=== PATIENT | male | born 1945 | race Caucasian/White ===

== ENCOUNTER 2016-11-18 09:31 | Emergency (ER) | payer OTHER ==
[2016-11-18 10:00] VITALS: BP 131/83
--- NOTE | 2016-11-18 10:13 | UC ---
Lower Extremity/Ankle HPI - HPI Summary HPI Summary: Accidentally kicked into bookshelf with R foot last night. Due to neuropathy cannot normally feel foot. Now has swelling and bruising. - History of Current Complaint Chief Complaint: UCLowerExtremity Stated Complaint: TOE INJURY Time Seen by Provider: 11/18/16 10:07 Hx Obtained From: Patient Onset/Duration: Sudden Onset Severity Initially: Mild Severity Currently: Moderate - Allergies/Home Medications Allergies/Adverse Reactions: Allergies Allergy/AdvReac Type Severity Reaction Status Date / Time Prochlorperazine Allergy Severe ITCHING, Verified 11/18/16 09:44 [From Compazine] RASH, PHOTOSENSITIVITY Sulfa Drugs Allergy Severe VASCULITIS Verified 11/18/16 09:44 Valdecoxib [From Bextra] Allergy Severe VASCULITIS Verified 11/18/16 09:44 Carbamazepine [From Tegretol] Allergy Intermediate Rash Verified 11/18/16 09:44 Gabapentin [From Neurontin] Allergy Unknown Verified 11/18/16 09:44 Reaction Details Naproxen [From Aleve] Allergy SODIUM Verified 11/18/16 09:44 RETENTION- IRRITABILITY Oxycodone Allergy Itching Verified 11/18/16 09:44 Pregabalin [From Lyrica] Allergy FELT LIKE Verified 11/18/16 09:44 ON ANOTHER PLANET Home Medications: Home Medications Ascorbic Acid TAB* [Vitamin C TAB*] 1 tab PO PRN 11/18/16 [History] Magnesium Oxide (mg Supplement [Magnesium] 1 tab PO DAILY 11/18/16 [History Confirmed 11/18/16] Mult Vitmain 1 tab 11/18/16 [History] PMH/Surg Hx/FS Hx/Imm Hx Endocrine History Of: Reports: Diabetes - PREDIABETIC- DIET CONTROLLED Denies: Thyroid Disease Cardiovascular History Of: Reports: Cardiac Disorders - See Note Denies: Hypertension, Pacemaker/ICD, Myocardial Infarction Respiratory History Of: Reports: Bronchitis, Pulmonary Embolism Denies: COPD, Asthma GI/ History Of: Reports: Ulcer - bx 06/24/14, Gastrointestinal Bleed, Gall Bladder Disease Denies: Renal Disease Neurological History Of: Reports: Seizures - 09/2014-GENERALIZED TONIC CLONIC- NONE SINCE Psychological History Of: Reports: Anxiety, Depression - NO MEDICATION FOR Other History Of: Negative For: Anticoagulant Therapy - Surgical History Surgical History: Yes Surgery Procedure, Year, and Place: TONSILECTOMY, ORIF RIGHT ANKLE. 2 ANKLE SURGERIES POST ORIF 1986. LEFT TESTICILAR CA [id number], HERNIA REPAIR 09/2015 , 1981. RIGHT AXILA EXPLORATORY SURGERY. LIPOMA EXCISED FROM MID BACK, LUMBAR DISCECTOMY L3-2012. Lap GALLBLADDER, 1999, [facility]. WISDOM TEETH EXTRACTED. LEFT TESTICULAR-SILICONE IMPLANT- 1982. L5 Bilateral Forenotomy 02/2016- Strong - Family History Known Family History: Positive: Hypertension - Social History Occupation: Unemployed Alcohol Use: Rare Substance Use Type: None Substance Use Comment - Amount & Last Used: prn muscle relaxer Smoking Status (MU): Former Smoker Type: Cigarettes Amount Used/How Often: SOCIAL SMOKER Length of Time of Smoking/Using Tobacco: college thru 2008 Have You Smoked in the Last Year: No When Did the Patient Quit Smoking/Using Tobacco: 5 YEARS AGO - Immunization History Most Recent Influenza Vaccination: 05/2016 Most Recent Tetanus Shot: 2010 Most Recent Pneumonia Vaccination: unsure Review of Systems Constitutional: Negative Skin: Bruising Eyes: Negative ENT: Negative Respiratory: Negative Cardiovascular: Negative Gastrointestinal: Negative Genitourinary: Negative Motor: Negative Neurovascular: Negative Musculoskeletal: Arthralgia Neurological: Negative Psychological: Negative All Other Systems Reviewed And Are Negative: Yes Physical Exam Triage Information Reviewed: Yes Appearance: Well-Appearing, No Pain Distress, Well-Nourished Vital Signs: Initial Vital Signs Temp 97.2 F 11/18/16 09:48 Pulse 103 11/18/16 09:48 Resp 16 11/18/16 09:48 BP 131/83 11/18/16 09:48 Pulse Ox 99 11/18/16 09:48 Vital Signs Reviewed: Yes Eye Exam: Normal, Other - PERRL Eyes: Positive: Conjunctiva Clear ENT Exam: Normal ENT: Positive: Normal ENT inspection, Hearing grossly normal, Pharynx normal, TMs normal Dental Exam: Normal Neck exam: Normal Neck: Positive: Supple, Nontender, No Lymphadenopathy Respiratory Exam: Normal Respiratory: Positive: Chest non-tender, Lungs clear, Normal breath sounds, No respiratory distress, No accessory muscle use Cardiovascular: Positive: No Murmur, Tachycardia - 100 on exam Musculoskeletal Exam: Other - marked bruising and swelling in R great toe Musculoskeletal: Positive: ROM Limited @ Neurological Exam: Normal Neurological: Positive: Alert Psychological Exam: Normal Skin Exam: Other - bruising R great toe Lower Extremity Course/Dx - Differential Dx/Diagnosis Provider Diagnoses: R great toe fracture of base of the distal phalanx closed, nondisplaced, intraarticular Discharge - Discharge Plan Condition: Stable Disposition: HOME Patient Education Materials: Toe Fracture (ED) Referrals: Rafael Griffin MD [Medical Doctor] - Additional Instructions: Because of the nature of your injury, in addition to your nerve damage, follow- up with an orthopedist is important. I would like you to get an appointment within the next week. You can bear weight on the foot, but if it becomes uncomfortable try to rest and elevate the area. Keep the boot on all the time, including while sleeping. I recommend you not remove it for bathing (but it can't get wet, so you will need to sponge-bathe).
--- NOTE | 2016-11-18 10:45 | RAD ---
INDICATION: Right foot injury. TECHNIQUE: 3 views of the right foot were obtained. FINDINGS: There is soft tissue swelling present in the great toe. There is a comminuted nondisplaced fracture present at the base of the distal phalanx of the great toe extending to the proximal articular margin. Incidental note is made of moderate to severe osteoarthritic change in the first metatarsal-phalangeal joint. IMPRESSION: COMMINUTED, NONDISPLACED INTRA-ARTICULAR FRACTURE BASE OF THE DISTAL PHALANX OF THE GREAT TOE.
== END 2016-11-18 11:21 | disposition home or self-care (01) ==
LOC: UCEAST 09:31
DX: S92.424A Nondisplaced fracture of distal phalanx of right great toe, initial encounter for closed fracture (principal); W22.8XXA Striking against or struck by other objects, initial encounter; Y93.9 Activity, unspecified; Y92.9 Unspecified place or not applicable; Z88.6 Allergy status to analgesic agent; Z88.5 Allergy status to narcotic agent; Z88.2 Allergy status to sulfonamides; Z88.8 Allergy status to other drugs, medicaments and biological substances; R73.03 Prediabetes; Z90.49 Acquired absence of other specified parts of digestive tract; Z87.891 Personal history of nicotine dependence
CPT/HCPCS: 99211; G0463

== ENCOUNTER 2018-04-10 13:30 | Inpatient (IN) | payer MEDICARE, OTHER ==
--- NOTE | 2018-04-10 14:36 | ED ---
Psychiatric Complaint - HPI Summary HPI Summary: This is sugar Lucero documenting for attending Lucian Layne MD. This patient is a 72 year old M BIBA to ED with a chief complaint of an episode of confusion this morning. He remembers his telling him she was going to work and that Krishna, a neighbor, would come by to have coffee with him. That is the extent of his memory. 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 A nurse came by yesterday refusing taking food and water. Last night, he refused to take meds. Krishna is a medical professional who offered assistance last night and the patient was able to talk to him and eventually he took the medicine. Krishna said he would come over in the morning to see how he was doing. This morning, his called EMS when she found the patient wandering in [place] barefoot and because of some alarming comments his friends had told her he said such as, tell my evee because Im never going to see her again. states that she has had moments where she is fearful that he may harm her. These sx have been going on for approximately 2 months but has become increasingly worse over the past week. The patient rates the pain 9/10 in severity. Symptoms aggravated by nothing. Symptoms alleviated by spontaneous resolution. He also has fears, one of which is for the political situation in our country currently. He fears he wont see his grandchildren again as well. His provider also suggests he gets a depicote level. 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 - History Of Current Complaint Chief Complaint: EDMentalHealth Time Seen by Provider: 04/10/18 13:34 Hx Obtained From: Patient, Family/Director Trial Onset/Duration: Sudden Onset, Lasting Weeks, Still Present Timing: Intermittent Episode Lasting Severity Currently: Severe - 9/10 Aggravating Factor(s): Nothing Alleviating Factor(s): Other - episodes with spontaneous resolution Associated Signs And Symptoms: Positive: Confused Related History: Positive For: Prior Psychiatric Issues - Allergies/Home Medications Allergies/Adverse Reactions: Allergies Allergy/AdvReac Type Severity Reaction Status Date / Time carbamazepine [From Tegretol] Allergy Rash Verified 04/10/18 14:33 gabapentin [From Neurontin] Allergy Unknown Verified 04/10/18 14:33 Reaction Details naproxen [From Aleve] Allergy See Comment Verified 04/10/18 14:33 oxycodone Allergy Itching Verified 04/10/18 14:33 pregabalin [From Lyrica] Allergy See Comment Verified 04/10/18 14:33 prochlorperazine Allergy See Comment Verified 04/10/18 14:33 [From Compazine] Sulfa (Sulfonamide Allergy See Comment Verified 04/10/18 14:33 Antibiotics) valdecoxib [From Bextra] Allergy See Comment Verified 04/10/18 14:33 Home Medications: Home Medications Atorvastatin* [Lipitor*] 10 mg PO BEDTIME 04/10/18 [History Confirmed 04/10/18] Cholestyramine Resin* [Questran*] 4 gm PO BID 04/10/18 [History Confirmed ] Divalproex ER TAB(*) [Depakote ER TAB(*)] 1,000 mg PO QPM 04/10/18 [History Confirmed 04/10/18] Divalproex ER TAB(*) [Depakote ER TAB(*)] 500 mg PO QAM 04/10/18 [History Confirmed 04/10/18] LORazepam TAB(*) [Ativan 0.5 MG TAB (*)] 0.5 mg PO QPM PRN 04/10/18 [History Confirmed 04/10/18] risperiDONE TAB* [RisperDAL*] 0.5 mg PO QPM 04/10/18 [History Confirmed 04/10/18 ] PMH/Surg Hx/FS Hx/Imm Hx Endocrine/Hematology History: Reports: Hx Blood Transfusions, Hx Diabetes - PREDIABETIC- DIET CONTROLLED, Hx Anemia Denies: Hx Anticoagulant Therapy, Hx Bone Marrow Disease, Hx Sickle Cell Disease, Hx Thyroid Disease, Hx Unexplained Bleeding Cardiovascular History: Reports: Hx Angina, Hx Hypercholesterolemia, Hx Peripheral Vascular Disease - WHEN ALLERGIC REACTION TO BEXTRA ~2003 OR 2004, Hx Valvular Heart Disease - MVP- WHEN WAS YOUNGER- STATES HAS HAD NEGATIVE ECHO' S-LAST 05/2015, Other Cardiovascular Problems/Disorders - RESTING TACHYCARDIA- STATES (-)STRESS TEST 07/2015- Denies: Hx Aneurysm, Hx Coronary Artery Disease, Hx Hypertension, Hx Myocardial Infarction, Hx Pacemaker/ICD Comment Only: Hx Cardiomegaly - SLIGHT ENLARGEMENT OF THE RIGHT VENTRICLE PER PATIENT Respiratory History: Reports: Hx Pulmonary Embolism, Hx Sleep Apnea, Other Respiratory Problems/Disorders - PRONE TO CROUP A CHILD Denies: Hx Asthma, Hx Chronic Obstructive Pulmonary Disease (COPD), Hx Pleural Effusion, Hx Seasonal Allergies GI History: Reports: Hx Diverticulosis, Hx Gall Bladder Disease, Hx Gastroesophageal Reflux Disease - ENDOSCOPY-06/2014, Hx Gastrointestinal Bleed, Hx Hiatal Hernia, Hx Irritable Bowel - POST GALLBLADDER REMOVAL, Hx Ulcer - bx 06/24/14, Other GI Disorders - TROUBLE HOLDING BOWEL- STATES FROM RADIATION THAT HE HAD IN 1981 History: Reports: Other Problems/Disorders - hx polyuria, nocturia Denies: Hx Acute Renal Failure, Hx Benign Prostatic Hyperplasia, Hx Dialysis , Hx Renal Disease Musculoskeletal History: Reports: Hx Arthritis - OTEOARTHRITIS, Hx Back Problems - spinal stenosis/displacement/degeneration, Hx Bursitis - NECK- SPURS - HAD EPIDURAL INJECTIONS- SUMMER 2013, Hx Gout, Hx Orthopedic Injury, Other Musculoskeletal History - L3 RIGHT- DISCECTOMY RIGHT -2012 Denies: Hx Congenital Bone Abnormalities, Hx Fibromyalgia, Hx Osteoporosis, Hx Scoliosis, Hx Tendonitis Sensory History: Reports: Hx Cataracts, Hx Contacts or Glasses - GLASSES, Hx Glaucoma Denies: Hx Hearing Aid Opthamlomology History: Reports: Hx Cataracts, Hx Contacts or Glasses - GLASSES , Hx Glaucoma Neurological History: Reports: Hx Headaches, Hx Nerve Disease - SPINAL MYELITIS , Hx Seizures - 09/2014-GENERALIZED TONIC CLONIC-NONE SINCE, Other Neuro Impairments/Disorders - CRAMP-FASCICULATION SYNDROME, POST RADIATION MYELITIS, DR. 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 2 ANKLE SURGERIES POST ORIF 1986. LEFT TESTICILAR CA [id number], HERNIA REPAIR 09/2015 , 1981. RIGHT AXILA EXPLORATORY SURGERY. LIPOMA EXCISED FROM MID BACK, LUMBAR DISCECTOMY L3-2012. Lap GALLBLADDER, 1999, [facility]. WISDOM TEETH EXTRACTED. LEFT TESTICULAR-SILICONE IMPLANT- 1982. L5 Bilateral Forenotomy 02/2016- [facility] Hx Anesthesia Reactions: Yes - SLOW RECOVERY WITH HYPOXIA - Immunization History Date of Tetanus Vaccine: up to date per pt Infectious Disease History: No Infectious Disease History: Reports: History Other Infectious Disease - herpatic lesion to rt lower lip Denies: Hx Hepatitis, Hx Human Immunodeficiency Virus (HIV), Traveled Outside the [place] in Last 30 Days - Family History Known Family History: Positive: Hypertension - Social History Alcohol Use: Rare Substance Use Type: Reports: None Substance Use Comment - Amount & Last Used: prn muscle relaxer Smoking Status (MU): Former Smoker Type: Cigarettes Amount Used/How Often: SOCIAL SMOKER Length of Time of Smoking/Using Tobacco: college thru 2008 Have You Smoked in the Last Year: No Review of Systems Positive: Other - refused food and water and refused to take his meds Psychological: Other - confusion, found him in [place] barefoot All Other Systems Reviewed And Are Negative: Yes Physical Exam - Summary Physical Exam Summary: VITAL SIGNS: Reviewed. GENERAL: Patient is a well-developed and nourished MALE who is lying comfortable in the stretcher. Patient is not in any acute respiratory distress. HEAD AND FACE: No signs of trauma. No ecchymosis, hematomas or skull depressions. No sinus tenderness. EYES: PERRLA, EOMI x 2, No injected conjunctiva, no nystagmus. EARS: Hearing grossly intact. Ear canals and tympanic membranes are within normal limits. MOUTH: Oropharynx within normal limits. NECK: Supple, trachea is midline, no adenopathy, no JVD, no carotid bruit, no c- spine tenderness, neck with full ROM. CHEST: Symmetric, no tenderness at palpation LUNGS: Clear to auscultation bilaterally. No wheezing or crackles. CVS: Regular rate and rhythm, S1 and S2 present, no murmurs or gallops appreciated. ABDOMEN: Soft, non-tender. No signs of distention. No rebound no guarding, and no masses palpated. Bowel sounds are normal. EXTREMITIES: FROM in all major joints, no edema, no cyanosis or clubbing. NEURO: Alert and oriented x 3. No acute neurological deficits. Speech is normal and follows commands. SKIN: Dry and warm Triage Information Reviewed: Yes Vital Signs On Initial Exam: Initial Vitals Temp Pulse Resp BP Pulse Ox 97.7 F 96 14 144/80 99 04/10/18 13:45 04/10/18 13:45 04/10/18 13:45 04/10/18 13:45 04/10/18 13:45 Vital Signs Reviewed: Yes Diagnostics - Vital Signs Vital Signs Temp Pulse Resp BP Pulse Ox 04/10/18 13:45 97.7 F 96 14 144/80 99 - Laboratory Result Diagrams: 04/10/18 15:42 04/10/18 15:42 Lab Statement: Any lab studies that have been ordered have been reviewed, and results considered in the medical decision making process. Course/Dx - Course Assessment/Plan: Blood test results without any significant abnormality supportiveness slight normocytic normochromic anemia, platelets 148. Urinalysis is negative for UTI he has 1+ ketones. Urine toxicology is negative. Cassity negative for an acute interconnected pathology. Chest x-ray is negative for acute pathology. Patient is medically clear. Patient is hemodynamically stable alert and oriented 3. Patient is awaiting for a mental health evaluation. Dr. Roberts assessed the patient and he recommends admission to the hospital for bipolar disorder. He is a voluntary admission. - Differential Dx/Clinical Impression Differential Diagnosis/HQI/PQRI: Positive: Other - bipolar disorder Provider Diagnosis: Bipolar disorder - Physician Notifications Discussed Care Of Patient With: Carlos Roberts Time Discussed With Above Provider: 21:36 Instructed by Provider To: Other - Dr. Roberts consulted the patient and [place] [facility] [place] - Sign-Out/Discharge Documenting (check all that apply): Patient Departure - Discharge Plan Condition: Stable Disposition: ADMITTED TO [facility] Referrals: Dave Beaevrs MD [Primary Care Provider] -
--- NOTE | 2018-04-10 14:55 | RAD ---
HISTORY: confusion COMPARISONS: September 28, 2014 TECHNIQUE: Multiple contiguous axial CT scans were obtained of the head without intravenous contrast. FINDINGS: HEMORRHAGE/INFARCT: There is no hemorrhage or acute infarct. MASSES/SHIFT: There is no mass or shift. EXTRA-AXIAL SPACES: There are no extra-axial fluid collections. SULCI AND VENTRICLES: The sulci and ventricles are normal in size and position for the patient's stated age. CEREBRUM: There are no focal parenchymal abnormalities. BRAINSTEM: There are no focal parenchymal abnormalities. CEREBELLUM: There are no focal parenchymal abnormalities. VESSELS: The vessels are grossly normal. PARANASAL SINUSES: The paranasal sinuses are clear. ORBITS: The orbits are unremarkable. BONES AND SOFT TISSUE: No bone or soft tissue abnormalities are noted. OTHER: None IMPRESSION: NO ACUTE INTRACRANIAL PATHOLOGY.
--- NOTE | 2018-04-10 15:10 | RAD ---
INDICATION: Confusion COMPARISON: Chest x-ray June 21, 2006 TECHNIQUE: PA and lateral dual-energy views were obtained. FINDINGS: Bones/Soft Tissues: There are no acute bony findings. Cardiomediastinal: The cardiomediastinal silhouette is normal. Lungs: There are no infiltrates. Pleura: There are no pleural effusions. Other: None IMPRESSION: NO ACTIVE DISEASE.
[2018-04-10 15:50] LABS: ABS Basophils 0 10^3/ul (0-0.2); ABS Eosinophils 0 10^3/ul (0-0.6); ABS Monocytes 0.5 10^3/ul (0-0.8); ABS Neutrophils 3.5 10^3/ul (1.5-7.7); ABS Nucleated RBC 0 10^3/ul; Eosinophil % 0.5 % (0-6); Hematocrit 39 % (42-52); Hemoglobin 13.6 g/dl (14.0-18.0); Lymphocyte % 19.7 % (25-47); Mean Corpuscular HGB Conc 35 g/dl (31-36); Mean Corpuscular Hemoglobin 31 pg (27-31); Mean Corpuscular Volume 90 fL (80-94); Nucleated Red Blood Cells % 0; Platelet Count 148 10^3/ul (150-450); Red Blood Count 4.35 10^6/ul (4.00-5.40); Red Cell Distribution Width 13 % (10.5-15)
[2018-04-10 15:52] LABS: Urine Appearance Clear; Urine Blood 1+ (Negative); Urine Color Yellow; Urine Ketones 1+ (Negative); Urine Protein Negative (Negative); Urine Red Blood Cell Trace(0-2/hpf) (Absent); Urine Specific Gravity 1.023 (1.010-1.030); Urine Urobilinogen Negative (Negative); Urine White Blood Cell 2+(11-20/hpf) (Absent)
[2018-04-10 16:36] LABS: EGFR Non-African American 90.3 (>60)
[2018-04-10] MEDS ORDERED: LORazepam TAB(*) 0.5 MG PO ONE (20:20)
[2018-04-10] MEDS ORDERED: Divalproex ER TAB(*) 500 MG PO ONE (20:20)
[2018-04-10] MEDS ORDERED: Atorvastatin* 10 MG TAB PO ONE (20:20)
[2018-04-10] MEDS ORDERED: risperiDONE TAB* 1 MG PO ONE (20:20)
[2018-04-10] MEDS ORDERED: Cholestyramine Resin* 4 GM POWDER PO ONE (20:23)
[2018-04-10] MEDS ORDERED: ATORVASTATIN 10 MG PO ONE (22:00)
[2018-04-10] MEDS ORDERED: CHOLESTYRAMINE RESIN PO ONE (22:00)
[2018-04-11] MEDS ORDERED: Cholestyramine Resin* 4 GM POWDER PO ONE (08:31)
[2018-04-11] MEDS ORDERED: Divalproex ER TAB(*) 500 MG PO ONE (08:31)
--- NOTE | 2018-04-11 09:27 | PN ---
ED Flex Patient Progress Note Date of Service: 04/10/18 Subjective: This is a 72 year-old M who is pending admission to [facility] / transfer to another psychiatric facility / discharge to home / or being observed secondary to bipolar, confusion. Pt. examined in F2 around 0830. He is sleeping comfortably. Objective: Vitals: Most recent vital signs documented below. Laboratory: Current laboratory results documented below. Assessment: Pending admit. Plan: Pending psychiatric or medical consultation to observe / transfer / admit / discharge will follow up daily . Vital Signs Temp Pulse Resp BP Pulse Ox 97.6 F 96 15 145/70 100 04/11/18 00:30 04/11/18 00:30 04/11/18 00:30 04/11/18 00:30 04/11/18 00:30 Lab Results - Entire Visit 04/10/18 04/10/18 04/10/18 15:42 15:42 15:41 WBC 5.0 RBC 4.35 Hgb 13.6 L Hct 39 L MCV 90 MCH 31 MCHC 35 RDW 13 Plt Count 148 L MPV 7.0 L Neut % (Auto) 69.2 Lymph % (Auto) 19.7 L [place] % (Auto) 10.0 H Eos % (Auto) 0.5 Baso % (Auto) 0.6 Absolute Neuts (auto) 3.5 Absolute Lymphs (auto) 1.0 Absolute Monos (auto) 0.5 Absolute Eos (auto) 0 Absolute Basos (auto) 0 Absolute Nucleated RBC 0 Nucleated RBC % 0 Sodium 141 Potassium 3.7 Chloride 103 Carbon Dioxide 28 Anion Gap 10 BUN 17 Creatinine 0.84 Est GFR ( Amer) 109.3 Est GFR (Non-Af Amer) 90.3 BUN/Creatinine Ratio 20.2 H Glucose 125 H Calcium 8.6 Total Bilirubin 0.90 AST 9 L ALT 8 Alkaline Phosphatase 44 Ammonia 27 Total Creatine Kinase 87 Total Protein 5.3 L Albumin 3.7 Globulin 1.6 L Albumin/Globulin Ratio 2.3 TSH 0.52 Urine Color Urine Appearance Urine pH Ur Specific [place] Urine Protein Urine Ketones Urine Blood Urine Nitrate Urine Bilirubin Urine Urobilinogen Ur Leukocyte Esterase Urine WBC (Auto) Urine RBC (Auto) Urine Bacteria Hyaline Casts Urine Glucose Urine Opiates Screen Acetaminophen < 15 Ur Barbiturates Screen Valproic Acid 95.0 Ur Phencyclidine Scrn Ur Amphetamines Screen U Benzodiazepines Scrn Urine Cocaine Screen U Cannabinoids Screen Serum Alcohol < 10 04/10/18 04/10/18 15:22 15:22 WBC RBC Hgb Hct MCV MCH MCHC RDW Plt Count MPV Neut % (Auto) Lymph % (Auto) [place] % (Auto) Eos % (Auto) Baso % (Auto) Absolute Neuts (auto) Absolute Lymphs (auto) Absolute Monos (auto) Absolute Eos (auto) Absolute Basos (auto) Absolute Nucleated RBC Nucleated RBC % Sodium Potassium Chloride Carbon Dioxide Anion Gap BUN Creatinine Est GFR ( Amer) Est GFR (Non-Af Amer) BUN/Creatinine Ratio Glucose Calcium Total Bilirubin AST ALT Alkaline Phosphatase Ammonia Total Creatine Kinase Total Protein Albumin Globulin Albumin/Globulin Ratio TSH Urine Color Yellow Urine Appearance Clear Urine pH 5.0 Ur Specific [place] 1.023 Urine Protein Negative Urine Ketones 1+ A Urine Blood 1+ A Urine Nitrate Negative Urine Bilirubin Negative Urine Urobilinogen Negative Ur Leukocyte Esterase 1+ A Urine WBC (Auto) 2+(11-20/hpf) A Urine RBC (Auto) Trace(0-2/hpf) Urine Bacteria Absent Hyaline Casts Present A Urine Glucose Negative Urine Opiates Screen None detected Acetaminophen Ur Barbiturates Screen None detected Valproic Acid Ur Phencyclidine Scrn None detected Ur Amphetamines Screen None detected U Benzodiazepines Scrn None detected Urine Cocaine Screen None detected U Cannabinoids Screen None detected Serum Alcohol
[2018-04-11] MEDS ORDERED: LORazepam TAB(*) 0.5 MG PO PRN (15:41)
[2018-04-11] MEDS ORDERED: Al Hydrox/Mg Hydrox/Simet LIQ* 30 ML UDC PO PRN (17:43)
[2018-04-11] MEDS ORDERED: risperiDONE TAB* 1 MG PO SCH (18:00)
[2018-04-11] MEDS ORDERED: ATORVASTATIN 10 MG PO SCH (21:00)
[2018-04-11] MEDS: Divalproex ER TAB(*) 500 MG PO SCH (22:50)
[2018-04-11] MEDS: CHOLESTYRAMINE RESIN PO SCH (22:59)
[2018-04-12] MEDS: Vitamin THERAPEUTIC TAB PO SCH (09:02)
[2018-04-12] MEDS: Divalproex ER TAB(*) 500 MG PO SCH ×2 (09:02→17:17)
--- NOTE | 2018-04-12 11:01 | PN ---
MHU: Group Therapy Note - Service Type Service Type: [id number] Group Psychotherapy - Cognitive Behavioral Group Therapy ( CBT):Patient was attentive and participatory in CBT programming this morning, and remained in good behavioral control. Patient expressed positive insights regarding relevant treatment interventions and goals.
[2018-04-12] MEDS: CHOLESTYRAMINE RESIN PO SCH ×2 (12:46→21:05)
[2018-04-12] MEDS: Lurasidone(*) 20 MG TAB PO SCH (17:15)
[2018-04-13] MEDS: Divalproex ER TAB(*) 500 MG PO SCH ×2 (09:22→17:24)
[2018-04-13] MEDS: Vitamin THERAPEUTIC TAB PO SCH (09:22)
[2018-04-13] MEDS: CHOLESTYRAMINE RESIN PO SCH ×2 (09:23→21:29)
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
--- NOTE | 2018-04-13 16:50 | PN ---
Subjective - Subjective Date of Service: 04/13/18 Service Type: 05582 Hosp care 35 min high complexity Subjective: Much time was spent with Suresh and his Monika discussing treatment and discharge. A MoCA assessment was performed and as expected his short-term memory was most affected. Still, the test was given in a noisy milieu with several interruptions. He was able to remember two words and all of the animals after five minutes. His fluency was affected as well. He chose complicated words, such as frangipane, for his F words. This is indicative of his style of over thinking at this point. He scored a 27/30, with the deficits coming from short-term memory. His test is in the chart. Objective - Appearance Appearance: Healthy Appearing Dysmorphic Features: No Hygiene: Normal Grooming: Well Kept - Behavior Psychomotor Activities: Normal Exhibits Abnormal Movement: No - Attitude and Relatedness Attitude and Relatedness: Superficially Cooperative Eye Contact: Good - Speech Quality: Unpressured Latencies: Short Quantity: Appropriate - Mood Patient's Decription of Mood: "Fine" - Affect Observed Affect: Good Affect Consistent with: Dysphoria - Thought Process Patient's Thought Process: Coherent Thought Content: Yes Passive Wish, No Suicidal Planning, No Homicidal Ideation, No Paranoid Ideation - Sensorium Experiencing Hallucinations: Yes Type of Hallucinations: Visual: No, Auditory: Yes - Olfactory, Command: No - Level of Consciousness Level of Consciousness: Alert Orientation: Yes Intact, Yes Orientated to Place, Yes Orientated to Person, No Orientated to Time - Did not know day of week - Impulse Control Impulse Control: Intact - Insight and Judgement Insight and Judgement: Fair - Medication Management Medication Management Adherence: Yes - Additional Observations Comments: Suresh is doing well. He continues to worry about his short-term memory, which is reasonable as it is not completely reliable. he was told today that he wouldn 't be going home today and he managed that news well. Assessment - Assessment Merits Inpatient Hospitalization: For Immediate Safety, For Stabilization, For Discharge Planning Inpatient DSM-V Dx: F31.64 Clinical Impression: Suresh has bipolar disorder and is currently in the midst of a mixed episode with mild psychotic features such as oversensitivity to worry and olfactory hallucinations. Plan - Plan Treatment Plan: Name: SURESH BEVERLY Birthdate: 1945 [id number] Continued Medication Management: Different Medication Medications: Current Medications Acetaminophen (Tylenol Tab*) 650 mg PO Q4H PRN PRN Reason: PAIN or TEMP > 101 F Al Hydrox/Mg Hydrox/Simethicone (Maalox Plus*) 30 ml PO Q4H PRN PRN Reason: INDIGESTION Cholestyramine Resin (Questran*) 4 gm PO BID@0800,2000 [facility] Last Admin: 04/13/18 09:23 Dose: 4 gm Divalproex Sodium (Depakote Er Tab(*)) 500 mg PO QAM [facility] Last Admin: 04/13/18 09:22 Dose: 500 mg Divalproex Sodium (Depakote Er Tab(*)) 1,000 mg PO QPM [facility] Last Admin: 04/12/18 17:17 Dose: 1,000 mg Lorazepam (Ativan Tab(*)) 0.5 mg PO QPM PRN PRN Reason: ANXIETY Lurasidone HCl (Latuda) 20 mg PO 1700 [facility] Last Admin: 04/12/18 17:15 Dose: 20 mg Multivitamins (Theragran Tab*) 1 tab PO DAILY [facility] Last Admin: 04/13/18 09:22 Dose: 1 tab - Discharge Plan Discharge Plan: Outpatient Follow Up Outpatient Program: Private Clinician(s) Additional Comments: With the addition of Latuda and the deletion of Risperdal, which may not have been a large enough dose to manage the psychosis that is going on. Depakote levels will be monitored, as they are close to the top of the therapeutic range. Discharge is projected to be early next week.
[2018-04-13] MEDS: Lurasidone(*) 20 MG TAB PO SCH (17:24)
[2018-04-14] MEDS: Divalproex ER TAB(*) 500 MG PO SCH ×2 (09:04→17:17)
[2018-04-14] MEDS: Vitamin THERAPEUTIC TAB PO SCH (09:05)
[2018-04-14] MEDS: CHOLESTYRAMINE RESIN PO SCH ×2 (09:07→20:05)
--- NOTE | 2018-04-14 12:35 | PN ---
Subjective - Subjective Date of Service: 04/14/18 Service Type: 66700 Hosp care 35 min high complexity Subjective: Suresh put in his 72-hour notice today. Clearly, he would like to be discharged. He stated in the notice that he wants to see his and that he wants to travel. Following a family meeting with his , Claritza Frank, and myself, he did rescind that notice with the agreement that he would be discharged later on Tuesday. In the meeting, he was easily derailed to talk about his concerns about erratic patients having sharpened pencils and feeling stressed by the presence of those who are or were using substances. Objective - Appearance Appearance: Healthy Appearing Dysmorphic Features: No Hygiene: Normal Grooming: Well Kept - Behavior Psychomotor Activities: Normal Exhibits Abnormal Movement: No - Attitude and Relatedness Attitude and Relatedness: Guarded Eye Contact: Good - Speech Quality: Unpressured Latencies: Short Quantity: Copious - Mood Patient's Decription of Mood: "Okay" - Affect Observed Affect: Fair Affect Consistent with: Dysphoria - Thought Process Patient's Thought Process: Coherent Thought Content: No Passive Wish, No Suicidal Planning, No Homicidal Ideation, No Paranoid Ideation - Sensorium Experiencing Hallucinations: No, Sensorium is Clear Type of Hallucinations: Visual: No, Auditory: Yes - olfactory, Command: No - Level of Consciousness Level of Consciousness: Alert Orientation: Yes Intact, Yes Orientated to Time, Yes Orientated to Place, Yes Orientated to Person - Impulse Control Impulse Control: Intact - Insight and Judgement Insight and Judgement: Fair - Group Participation Particating in Group Activities: Yes - Medication Management Medication Management Adherence: Yes - Additional Observations Comments: Suresh is doing well. He continues to worry about his short-term memory, which is reasonable as it is not completely reliable. His speech is slower in the milieu than in the comfort room, and he notes this is due to distraction. Assessment - Assessment Merits Inpatient Hospitalization: For Immediate Safety, For Stabilization, For Discharge Planning Inpatient DSM-V Dx: F31.64 Clinical Impression: Suresh has bipolar disorder and is currently in the midst of a mixed episode with mild psychotic features such as oversensitivity to worry and olfactory hallucinations. There is some narcicism to his presentation, but this does not seem to be pathological in nature. Plan - Plan Treatment Plan: Name: SURESH BEVERLY Birthdate: 1945 [id number] Medications: Current Medications Acetaminophen (Tylenol Tab*) 650 mg PO Q4H PRN PRN Reason: PAIN or TEMP > 101 F Al Hydrox/Mg Hydrox/Simethicone (Maalox Plus*) 30 ml PO Q4H PRN PRN Reason: INDIGESTION Cholestyramine Resin (Questran*) 4 gm PO BID@0800,2000 [facility] Last Admin: 04/14/18 09:07 Dose: 4 gm Divalproex Sodium (Depakote Er Tab(*)) 500 mg PO QAM [facility] Last Admin: 04/14/18 09:04 Dose: 500 mg Divalproex Sodium (Depakote Er Tab(*)) 1,000 mg PO QPM [facility] Last Admin: 04/13/18 17:24 Dose: 1,000 mg Lorazepam (Ativan Tab(*)) 0.5 mg PO QPM PRN PRN Reason: ANXIETY Lurasidone HCl (Latuda) 20 mg PO 1700 [facility] Last Admin: 04/13/18 17:24 Dose: 20 mg Multivitamins (Theragran Tab*) 1 tab PO DAILY [facility] Last Admin: 04/14/18 09:05 Dose: 1 tab - Discharge Plan Discharge Plan: Outpatient Follow Up Outpatient Program: Private Clinician(s) Additional Comments: With the addition of Latuda and the deletion of Risperdal, which may not have been a large enough dose to manage the psychosis that is going on. Depakote levels will be monitored, as they are close to the top of the therapeutic range. Discharge is projected to be Tuesday around 1:00 pm.
[2018-04-14] MEDS: Lurasidone(*) 20 MG TAB PO SCH (17:16)
[2018-04-15] MEDS: Vitamin THERAPEUTIC TAB PO SCH (08:50)
[2018-04-15] MEDS: Divalproex ER TAB(*) 500 MG PO SCH ×2 (08:50→17:36)
[2018-04-15] MEDS: CHOLESTYRAMINE RESIN PO SCH ×2 (08:50→20:07)
[2018-04-15] MEDS: Acetaminophen TAB* 325 MG PO PRN ×2 (08:52→15:05)
[2018-04-15] MEDS: Lurasidone(*) 20 MG TAB PO SCH (17:36)
[2018-04-16] MEDS: CHOLESTYRAMINE RESIN PO SCH ×2 (09:12→20:16)
[2018-04-16] MEDS: Vitamin THERAPEUTIC TAB PO SCH (09:12)
[2018-04-16] MEDS: Divalproex ER TAB(*) 500 MG PO SCH ×2 (09:12→17:32)
--- NOTE | 2018-04-16 16:38 | PN ---
Subjective - Subjective Date of Service: 04/16/18 Service Type: 44107 Hosp care 15 min low complexity Subjective: Met with Dr. Sam for about an hour. He had a lot of questions and concerns mostly around his poor memory, attention/concentration and other physical health issues. His attention/concentration was not as bad as he thinks. It is worse because of his hearing deficit and because of that he doesn't registrar some of the conversations. When spoken aloud from close range he does better. His mood appears to be good without any flight of ideas or distractability. He denies any racing thoughts, delusions, hallucinations, SI or HI. Sleep and appetite is good. Objective - Appearance Appearance: Healthy Appearing Dysmorphic Features: No Hygiene: Normal Grooming: Well Kept - Behavior Psychomotor Activities: Normal Exhibits Abnormal Movement: No - Attitude and Relatedness Attitude and Relatedness: Appropriate Eye Contact: Good - Speech Quality: Unpressured Latencies: Normal Quantity: Appropriate - Mood Patient's Decription of Mood: "Good" - Affect Observed Affect: Non-labile - Thought Process Patient's Thought Process: Coherent, Goal Directed Thought Content: No Passive Wish, No Suicidal Planning, No Homicidal Ideation, No Paranoid Ideation - Sensorium Experiencing Hallucinations: No, Sensorium is Clear Type of Hallucinations: Visual: No, Auditory: No, Command: No - Level of Consciousness Level of Consciousness: Alert Orientation: Yes Intact, Yes Orientated to Time, Yes Orientated to Place, Yes Orientated to Person - Impulse Control Impulse Control: Intact - Insight and Judgement Insight and Judgement: Fair - Group Participation Particating in Group Activities: Yes - Medication Management Medication Management Adherence: Yes Assessment - Assessment Merits Inpatient Hospitalization: Consolidate Improvements, Pending Safe DC Plan Inpatient DSM-V Dx: F31.64 Clinical Impression: Symptoms appeared to have improved significantly. Plan - Plan Treatment Plan: Name: REFUGIO BEVERLY Birthdate: 1945 [id number] Continued Medication Management: Continue Outpt Medication Medications: Current Medications Acetaminophen (Tylenol Tab*) 650 mg PO Q4H PRN PRN Reason: PAIN or TEMP > 101 F Last Admin: 04/15/18 15:05 Dose: 650 mg Al Hydrox/Mg Hydrox/Simethicone (Maalox Plus*) 30 ml PO Q4H PRN PRN Reason: INDIGESTION Last Admin: 04/15/18 09:35 Dose: 30 ml Cholestyramine Resin (Questran*) 4 gm PO BID@0800,2000 [facility] Last Admin: 04/16/18 09:12 Dose: 4 gm Divalproex Sodium (Depakote Er Tab(*)) 500 mg PO QAM [facility] Last Admin: 04/16/18 09:12 Dose: 500 mg Divalproex Sodium (Depakote Er Tab(*)) 1,000 mg PO QPM [facility] Last Admin: 04/15/18 17:36 Dose: 1,000 mg Lorazepam (Ativan Tab(*)) 0.5 mg PO QPM PRN PRN Reason: ANXIETY Lurasidone HCl (Latuda) 20 mg PO 1700 [facility] Last Admin: 04/15/18 17:36 Dose: 20 mg Multivitamins (Theragran Tab*) 1 tab PO DAILY [facility] Last Admin: 04/16/18 09:12 Dose: Not Given - Discharge Plan Discharge Plan: Outpatient Follow Up Outpatient Program: Private Clinician(s)
[2018-04-16] MEDS: Lurasidone(*) 20 MG TAB PO SCH (17:31)
[2018-04-17 08:10] VITALS: BP 133/65
[2018-04-17] MEDS: CHOLESTYRAMINE RESIN PO SCH (08:23)
[2018-04-17] MEDS: Divalproex ER TAB(*) 500 MG PO SCH (08:26)
[2018-04-17] MEDS: Vitamin THERAPEUTIC TAB PO SCH (08:27)
[2018-04-17] MEDS ORDERED: Lurasidone(*) 20 MG TAB PO SCH (12:00)
--- NOTE | 2018-04-18 03:31 | DS ---
CC: Dr. Rina Sanford; Dr. Dave Beavers * DISCHARGE SUMMARY: DATE OF ADMISSION: 04/11/18 DATE OF DISCHARGE: 04/17/18 PROVIDER: Nehal Menendez NP in Psychiatry. SUPERVISING PHYSICIAN: Dr. Casey Amin.* (DICTATED BY NEHAL MENENDEZ NP ) DIAGNOSIS: [place] I: Bipolar I disorder, current episode mixed with psychotic features CONDITION AT THE TIME OF DISCHARGE: Suresh is improved. He is psychiatrically cleared. He is stable. He participated in groups and was somewhat social with peers. He and his , Monika, were agreeable to discharge. He did well here psychiatrically. He tolerated Latuda well. He will continue to take Latuda. He will be attending psychotherapy and medication management with Rina Sanford MD and will be following up with Dr. Dave Beavers. MENTAL STATUS EXAMINATION AT THE TIME OF DISCHARGE: The patient is calm, cooperative, and makes good eye contact. He is alert and oriented x3. His grooming is good. His speech pace is normal. His thought processes are logical , but perhaps slightly slowed. He is not obviously psychotic or delusional. He denies AH, VH, SI, and HI. His insight is fair. His judgment is good. He is willing to follow up and he is urged to see both his primary care provider and his psychiatrist. DISCHARGE INSTRUCTIONS TO THE PATIENT: A. Medications: 1. Questran 4 mg b.i.d. 2. Depakote 1500 mg; split 1000 at night, 500 mg in the morning. 3. Lurasidone (Latuda) 20 mg at dinner time with a 350 calorie meal and the statin he was taking has been discontinued due to its propensity to cause dementia-like symptoms. B. Diet: Regular. C. Activity: As tolerated. He is encouraged to get exercise due to his spinal condition. He is a nonsmoker. There are no studies pending at the time of discharge. D. Followup care: He has an appointment with Dave Beavers and with Rina Sanford. E. Substance abuse followup: Not indicated. HOSPITAL COURSE: Part A: Chief complaint: "I have a poor memory." The patient is a 72-year-old male who is to a woman named Monika, and he has a history of bipolar disorder, who arrives by ambulance and admitted on an involuntary status after being out on the pavement in the driveway and walking around barefoot and not having any memory of anything other than a few hours. 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 He is having trouble with his memory. He is having difficulty with speech and he has latencies in speech. He has been found wandering in the past. He has had a previous admission here in 2015 in the short-stay surgical unit and has had a psychiatric consult there. He has been worked up for medical problems and I relate to what seems to be dementia symptoms, although when we speak with him, the symptoms are perhaps more psychiatric than they are of dementia; that would be resolved with further testing. Suresh has during this episode on his driveway and in the street in bare feet stated things like say goodbye to my , Monika , I will never see her again. These were interpreted as suicidal statements. Suresh does not know what is "stressing him out." He does have latencies of speech. He appears to be depressed. He is having potentially olfactory hallucinations. He believes the water in his home is contaminated. He is cleaning excessively. He is not eating well or at all. His energy does not appear to be affected. He does seem to be distractible. He is grandiose and somewhat narcissistic, but it is unclear whether this is somewhat personality- based rather than manic grandiosity. He is not sleeping particularly well. Part B: Psychiatric treatment was rendered. The patient was admitted to the Adult Behavioral Health Unit and placed on 15-minute checks for safety. Suresh did reasonably well and went on the unit and went to groups. He interacted with peers reasonably well. He was quite dissatisfied with the state of the behavioral health unit as it is under construction as well as its staff. He, every time we met, discussed his dissatisfaction and stated that surely there must be someone in-charge who would know better than this. Latuda was started in order to target the thoughts of contaminated water and excessive cleaning and olfactory hallucinations. We intended to keep him for a few more days, but he entered his 72-hour notice and stated that he wanted to be with his and travel and sleep in his own bed; therefore, we discharged him. He did rescind the 72-hour notice, but we did discharge him within about 5 hours of what otherwise would have been 72 hours as he was clear about wanting to leave. We did discontinue his statin as that can cause dementia- like symptoms. We also believe that the dementia-like symptoms are confused symptom of a mixed episode of bipolar I disorder, the psychotic symptoms, or psychotic-seeming symptoms may also be result of that; therefore, Latuda will target all of those issues. Because we changed from Risperdal to Latuda, we would like to check on his hemoglobin A1c and lipids. His HbA1c on 04/12/18 was 5.9, triglycerides were 101, cholesterol was 110, LDL cholesterol was 42, HDL cholesterol was 48.1. Incidentally, his TSH is 0.52. We did meet with his , Monika, she was in favor of him staying a bit longer, but Suresh was not particularly interested in that. He did have a card brusher consult and a nutrition consult. He is improved. He is less confused. We did do a MoCA exam and he scored 27 out of 30, which is excellent given the situation, which was noisy and distracting that he took the test during. He missed the short-term memory: he only remembered 2 out of 5 words. He did remember the animals though when asked what those were after 5 minutes. In general, he seems to have improved. He has begun to focus on himself almost exclusively and is still concerned about his home being contaminated, but is much more circumspect about it. He has improved since his admission and we wish him the best of health. Suresh would also like it noted that during his consultation with Dr. Artis, three suggestions were given: get tested for hearing aids, review his medications with Dr. Sanford, and rest. NEHAL MENENDEZ, WAYNE [id number]/[facility] #: [id number] MALENA
== END 2018-04-17 13:05 | disposition home or self-care (01) | DRG 885 ==
LOC: ED 13:30 → BSU 04-11 15:39
PROVIDERS: ADMIT Psychiatry & Neurology Psychiatry; ATTEND Psychiatry & Neurology Psychiatry
DX: F31.64 Bipolar disorder, current episode mixed, severe, with psychotic features (principal); R45.851 Suicidal ideations; Z85.47 Personal history of malignant neoplasm of testis; Z79.899 Other long term (current) drug therapy; Z81.8 Family history of other mental and behavioral disorders
CPT/HCPCS: 36415; 70450; 71045; 80053; 80061; 80164; 80307; 80320; 80329; 81003; 81015; 82140; 82550; 83036; 84443; 85025; 87086; 90853; 93005; 99222; 99231; 99233; 99238; 99284; A9270-GY; G0480